=== PATIENT | female | born 1950 | race Caucasian/White ===

== ENCOUNTER 2021-04-02 05:37 | Inpatient (IN) | payer MEDICAID ==
[~2021-04-02] VITALS: Ht 162.6 cm; Wt 47.6 kg
[2021-04-02] MEDS ORDERED: MECLIZINE 25MG TABLET PO ONE (06:45)
[2021-04-02 07:13] LABS: BASOPHILS % 0.9 % (0.0-2.0); EOSINOPHILS % 1.1 % (0.0-5.0); HEMATOCRIT. 32.3 % (36.0-48.0); HEMOGLOBIN. 11.4 g/dL (12.0-16.0); LYMPHOCYTES % 23.9 % (20.0-50.0); MEAN CORPUSCULAR HEMOGLOBIN 29.8 pg (28.0-32.0); MEAN CORPUSCULAR VOLUME 84.5 fL (81.0-99.0); MEAN PLATELET VOLUME 8.5 fl (7.4-10.4); NEUTROPHILS % 64.1 % (40.0-76.0); PLATELET 211 x1000/uL (130-400); RED BLOOD CELL COUNT 3.82 mill/uL (4.2-5.4); RED CELL DISTRIBUTION WIDTH 12.8 % (11.6-14.6)
[2021-04-02 07:20] LABS: CHLORIDE 89 mEq/L (98-107)
[2021-04-02] MEDS: SODIUM CHLORIDE 0.9% 1,000 ML IV SCH ×2 (10:15→21:39)
[2021-04-02] MEDS ORDERED: MECLIZINE 25MG TABLET PO PRN (14:15)
[2021-04-02 20:00] VITALS: BP 145/34
[2021-04-02] MEDS ORDERED: EZET10TA13 PO (20:12)
[2021-04-02] MEDS ORDERED: LISI-186 PO (20:12)
[2021-04-02] MEDS ORDERED: METF-416 PO (20:12)
[2021-04-02] MEDS ORDERED: ATOR-2 PO (20:12)
[2021-04-02] MEDS ORDERED: DEXTROSE 50% WATER 50ML SYRINGE IV PRN (20:30)
[2021-04-02] MEDS ORDERED: ACETAMINOPHEN 325MG TABLET PO PRN (20:30)
[2021-04-02] MEDS ORDERED: ONDANSETRON HCL 4MG/2ML INJ IV PRN (20:30)
[2021-04-02] MEDS: BLOOD SUGAR DIAGNOSTIC STRIP TEST SCH (20:56)
[2021-04-02] MEDS: INSULIN LISPRO 100 UNITS/ML SUBCUT SCH (21:39)
[2021-04-03] VITALS: BP 121/44
[2021-04-03 04:00] VITALS: BP 103/38
[2021-04-03] MEDS ORDERED: SODIUM CHLORIDE 0.45% 1,000 ML IV SCH (04:00)
[2021-04-03] MEDS: BLOOD SUGAR DIAGNOSTIC STRIP TEST SCH ×2 (06:29→13:09)
[2021-04-03] MEDS: INSULIN LISPRO 100 UNITS/ML SUBCUT SCH ×2 (06:29→12:50)
[2021-04-03 06:37] LABS: BASOPHILS % 1.1 % (0.0-2.0); EOSINOPHILS % 2.2 % (0.0-5.0); HEMATOCRIT. 32.5 % (36.0-48.0); HEMOGLOBIN. 11.3 g/dL (12.0-16.0); LYMPHOCYTES % 36.2 % (20.0-50.0); MEAN CORPUSCULAR HEMOGLOBIN 29.4 pg (28.0-32.0); MEAN CORPUSCULAR VOLUME 84.8 fL (81.0-99.0); MEAN PLATELET VOLUME 9.3 fl (7.4-10.4); MONOCYTES % 13.3 % (2.0-8.0); NEUTROPHILS % 47.2 % (40.0-76.0); PLATELET 228 x1000/uL (130-400); RED BLOOD CELL COUNT 3.83 mill/uL (4.2-5.4); RED CELL DISTRIBUTION WIDTH 12.9 % (11.6-14.6)
[2021-04-03 07:36] LABS: CHLORIDE 103 mEq/L (98-107)
[2021-04-03 08:00] VITALS: BP 112/54
[2021-04-03 12:00] VITALS: BP 140/89
[2021-04-03] MEDS ORDERED: MECL-159 MT (13:22)
[2021-04-03 15:29] VITALS: BP 140/89
== END 2021-04-03 16:34 | disposition home or self-care (01) | DRG 111 ==
LOC: ER 06:03 → EDBEDREQ 12:59 → ENRESERV 16:55 → 6WST 20:13
PROVIDERS: ADMIT Internal Medicine; ATTEND Internal Medicine
DX: H81.10 Benign paroxysmal vertigo, unspecified ear (principal); E87.1 Hypo-osmolality and hyponatremia; E11.9 Type 2 diabetes mellitus without complications; J98.11 Atelectasis; E78.5 Hyperlipidemia, unspecified; I10 Essential (primary) hypertension; R55 Syncope and collapse
CPT/HCPCS: 36415; 70551; 71045; 80048; 80053; 82533; 82962; 83930; 83935; 84295; 84443; 84484; 85025; 93005; 97162; 99285; J1815; J8597